=== PATIENT | male | born 1990 | race Caucasian/White ===

== ENCOUNTER 2018-05-20 14:14 | Outpatient (CLI) | payer BC ==
--- NOTE | 2018-05-20 15:03 | ULT ---
BILATERAL TESTICULAR ULTRASOUND WITH GRAYSCALE COLORFLOW AND SPECTRAL DOPPLER: HISTORY: Epididymal pain. FINDINGS: The right testis measures 3.4 x 4.7 x 2.5 cm, and the left testis measures 2.9 x 5 x 2.8 cm. The rig ht epididymis measures 1.5 x 0.6 cm, and the left epididymis measures 1.4 x 0.9 cm. No testicular mass or microlithiasis is seen. No epididymal mass is seen. There is flow demonstrate d to both epididymides and testes with mildly asymmetrically increased flow to the right compared to the left. IMPRESSION: Probable right-sided epididymalorchitis. POS: [facility]
== END 2018-05-20 14:15 | disposition home or self-care (01) ==
LOC: SCSULT 14:14
PROVIDERS: ATTEND Family Medicine
DX: N50.9 Disorder of male genital organs, unspecified (principal)
CPT/HCPCS: 76870; 93976